=== PATIENT | female | born 1985 | race Caucasian/White ===

== ENCOUNTER 2019-09-14 14:51 | Emergency (ER) | payer SELFPAY ==
[2019-09-14 15:45] LABS: INR-International Normal Ratio 1.1; Prothrombin Time 13.8 sec (12.0-14.7)
[2019-09-14 15:54] LABS: Acetaminophen Less than 6.0 mcg/mL (10.0-30.0); Alcohol Less than 10 mg/dL (Less than 10); Salicylate Less than 8.0 mg/dL (15.0-30.0)
[2019-09-14 15:56] LABS: ALT (SGPT) 10 U/L (8-55); AST (SGOT) 14 U/L (5-34); Albumin 4.4 g/dL (3.5-5.0); Alkaline Phosphatase 164 U/L (40-110); Anion Gap 13 mmol/L (10-20); BUN (Urea Nitrogen) 9 mg/dL (7.0-18.7); Bilirubin, Total 0.3 mg/dL (0.2-1.2); Calc. Creatinine Clearance 0 mL/min (70-130); Calcium 8.9 mg/dL (7.8-10.44); Carbon Dioxide 22 mmol/L (22-29); Chloride 110 mmol/L (98-107); Estimated GFR-MDRD 85; Globulin 2.8 g/dL (2.4-3.5); Glucose 97 mg/dL (70-105); Potassium 3.7 mmol/L (3.5-5.1); Protein, Total 7.2 g/dL (6.0-8.3); Sodium 141 mmol/L (136-145)
[2019-09-14 16:00] LABS: #Basophils 0.1 thou/uL (0.0-0.2); #Lymphocytes 0.9 thou/uL (1.20-3.40); #Monocytes 0.3 thou/uL (0.11-0.59); #Neutrophils 4.9 thou/uL (1.40-6.50); %Eosinophils 0.3 % (0.0-10.0); %Lymphocytes 14.1 % (21.0-51.0); %Monocytes 5.2 % (0.0-10.0); %Neutrophils 79.4 % (42.0-75.0); Elliptocytes SLIGHT = 2-5 cells (100X) (0-1/hpf); Hemoglobin 8.4 g/dL (12.0-16.0); Hypochromia MARKED = >30 cells (100X) (0-5/hpf); MDiff Complete? YES; Mean Corpuscular HGB CONC 28.9 g/dL (32.0-36.0); Mean Corpuscular Hemoglobin 21.9 pg (27.0-31.0); Mean Corpuscular Volume 75.9 fL (78.0-98.0); Mean Platelet Volume 7.1 fL (7.4-10.4); Microcytosis MODERATE=15-30 cells (100X) (0-5/hpf); Platelet Count 269 thou/uL (130-400); RBC Distribution Width 19.3 % (11.5-14.5); Red Blood Cell (RBC) Count 3.84 mill/uL (4.20-5.40); Rouleaux Formation SLIGHT = 1-5 cells (100X) (None Seen); White Blood Cell (WBC) Count 6.1 thou/uL (4.8-10.8)
[2019-09-14 16:01] LABS: BHCG - Serum Negative (NEGATIVE); Pregs Control Background? CLEAR/WHITE (CLR/WHITE); Pregs Control Bar Appear? YES (CONTROL BAR)
--- NOTE | 2019-09-14 16:35 | CT ---
CT OF THE BRAIN WITHOUT CONTRAST: 09/14/19 COMPARISON: Comparison is made with a 03/06/15 study from [facility]. The ventricles are normal in size with no shift. No intracranial bleeding or extra-axial hematoma was seen. There is no sign of mass, edema, or stroke. The skull appears intact. The visible paranasal si nuses and mastoid air cells are clear. IMPRESSION: No acute intracranial findings. Preliminary report discussed with Dr. Viveros at 1615 on 09/14/19. POS: HOME
--- NOTE | 2019-09-14 16:36 | RAD ---
PORTABLE CHEST: 09/14/19 An AP portable film at 1552 is submitted with no prior films available for comparison. The heart is normal in size and the lungs are clear. There is no mediastinal widening or shift. No in filtrates, effusions, or pneumothorax was seen. No fractures were appreciated. IMPRESSION: No acute thoracic finding. POS: HOME
--- NOTE | 2019-09-14 16:56 | CT ---
CT OF THE CERVICAL SPINE 09/14/[address] of the cervical spine was done following trauma. Axial slices were acquired followed by cor onal and sagittal reconstructions. There is loss of the normal cervical lordosis which may be due to muscle spasm. Degenerative changes are prominent at the C6-C7 level where there are prominent anterio r osteophytes. No particular disc space narrowing was seen. The C1 to dens distance is normal and the soft tissues are normal in thickness. On the sagittal reviews, there was a line and a potential step-off of the posterior margin of the C7 vertebral body. On all other views, this area was unremarkable in appearance with no sign at all of f racture. It is felt that this is most likely artifactual in nature given the multiplicity of views. O ther than this area, there were no areas suspicious for fracture. Findings by level follow: C1-C2: No acute findings. C2-C3: No acute findings. C3-C4: No acute findings. C4-C5: No acute findings. C5-C6: No acute findings. C6-C7: Prominent anterior osteophytes at this level. Small amounts of bony spurring posteriorly at th is level centrally. Foramina are patent, though the right foramen is slightly narrower than the left. C7-T1: No acute findings. The lung apices were clear and showed no pneumothorax. IMPRESSION: 1. Loss of normal cervical lordosis which may be due to muscle spasm. 2. Prominent degenerative changes for age at C6-C7. 3. Sagittal views shows a concerning line through the posterior vertebral body of C7, but all ot her views appear very normal in this area. The probability of acute fracture here is thought to be ve ry low. If symptoms or mechanism of injury dictate need for further follow-up, an MRI could be useful . Second opinion also obtained from radiologist at [facility]. Discussed with Dr. Viveros at [phone] on 09/14/19. POS: HOME
== END 2019-09-14 16:39 ==
LOC: BURERS 14:51
DX: S09.90XA Unspecified injury of head, initial encounter (principal); D50.9 Iron deficiency anemia, unspecified; I10 Essential (primary) hypertension; F41.9 Anxiety disorder, unspecified; V49.9XXA Car occupant (driver) (passenger) injured in unspecified traffic accident, initial encounter
CPT/HCPCS: 70450; 71045; 72125; 80053; 80307; 84703; 85025; 85610